=== PATIENT | female | born 1970 | race Hispanic/Latino ===

== ENCOUNTER 2025-06-30 12:14 | Emergency (ER) | payer OTHER ==
[~2025-06-30] VITALS: Ht 160 cm; Wt 92.5 kg
[2025-06-30] MEDS: KETOROLAC TROMETHAMINE 60 MG/2 ML VIAL IM ONE (13:47)
[2025-06-30] MEDS: CYCLOBENZAPRINE HCL 10 MG TAB PO ONE (13:48)
[2025-06-30 14:32] VITALS: PULSE 74; RESP 16; TEMP 98.1; O2SAT 99
[2025-06-30] MEDS ORDERED: CYCLOBENZAPRINE10 MG PO (15:30)
== END 2025-06-30 16:00 | disposition home or self-care (01) ==
LOC: ER 12:56
DX: M54.6 Pain in thoracic spine (principal); M54.50 Low back pain, unspecified; S20.224A Contusion of middle back wall of thorax, initial encounter; S30.0XXA Contusion of lower back and pelvis, initial encounter; W01.0XXA Fall on same level from slipping, tripping and stumbling without subsequent striking against object, initial encounter; Y93.01 Activity, walking, marching and hiking; Y92.89 Other specified places as the place of occurrence of the external cause; I10 Essential (primary) hypertension; E11.9 Type 2 diabetes mellitus without complications
CPT/HCPCS: 72070; 72110; 81025; 99283; J1885